=== PATIENT | female | born 1930 | race Caucasian/White ===

== ENCOUNTER 2017-10-29 01:06 | Inpatient (IN) ==
[2017-10-29] MEDS ORDERED: SODIUM CHLORIDE 0.9% 1,000 ML IV PRN (01:39)
[2017-10-29 02:43] LABS: Basophils % 0.1 % (0.0-0.8); Eosinophils % 0.1 % (0.00-10.9); Immature Granulocytes % 0.7 %; Immature Granulocytes Absolute 0.11 #; Lymphocytes # 0.9 10*3/uL (1.4-4.0); Lymphocytes % 5.4 % (21.3-54.2); Mean Corpuscular HGB Conc 29.8 GM/DL (32-36); Mean Corpuscular Hemoglobin 20 PG (27-34); Mean Corpuscular Volume 65.4 FL (87-102); Mean Platelet Volume 10.6 FL (9.6-12.0); Monocytes % 6.4 % (1.7-12.7); NRBC # 0.04 10*3/uL; Neutrophils # 14.3 10*3/uL (1.4-7.4); Neutrophils % 87.3 % (38.7-73.9); Platelet Count 254 T/CUMM (130-400); Red Blood Count 2.72 MC/CUMM (3.8-5.5); Red Cell Distribution Width 17.4 % (9.3-17.3); White Blood Count 16.3 T/CUMM (4-12)
[2017-10-29 02:45] LABS: Hemoglobin 5.3 GM/DL (12.0-16.0)
[2017-10-29 02:46] LABS: Hematocrit 17.8 VOL% (35.7-47.0)
[2017-10-29 03:01] LABS: Albumin 3.4 G/DL (3.4-5.0); Bilirubin,Total 1.6 MG/DL (0.2-1.0); Calcium 8.9 MG/DL (8.5-10.1); Osmolality,Calculated 292.1 MOS/KG (273-304); Potassium 4.9 MMOL/L (3.5-5.1); Total Protein 6.9 G/DL (6.4-8.3)
[2017-10-29] MEDS ORDERED: PROMETHAZINE 25 MG/1 ML VIAL IM PRN (04:59)
[2017-10-29] MEDS ORDERED: ONDANSETRON 4 MG/2 ML VIAL IV PRN (04:59)
[2017-10-29] MEDS ORDERED: MORPHINE 4 MG/1 ML VIAL IV PRN (04:59)
[2017-10-29] MEDS ORDERED: GLUCAGON 1 MG VIAL IM PRN (04:59)
[2017-10-29] MEDS ORDERED: ALBUTEROL 2.5 MG/3 ML NEB RESP TX PRN (04:59)
[2017-10-29] MEDS ORDERED: OCTREOTIDE 500 MCG in SODIUM CHLORIDE 0.9% 100 ML IV SCH (05:15)
[2017-10-29] MEDS ORDERED: PANTOPRAZOLE INJ 80 MG in SODIUM CHLORIDE 0.9% 100 ML IV ONE (05:15)
[2017-10-29] MEDS: SODIUM CHLORIDE 0.9% 1,000 ML IV SCH ×2 (05:22→22:53)
[2017-10-29] MEDS: INSULIN LISPRO 100 UNIT/ML SUBCUT SCH ×3 (05:52→17:40)
[2017-10-29] MEDS: PANTOPRAZOLE INJ 200 MG in SODIUM CHLORIDE 0.9% 250 ML IV SCH (06:37)
[2017-10-29] MEDS: FLUDROCORTISONE 0.1 MG TABLET PO SCH (08:01)
[2017-10-29] MEDS: INSULIN ASPART PROTAMINE/ASPART 70/30 100 UNIT/ML SUBCUT SCH ×2 (08:01→17:39)
[2017-10-29 09:44] LABS: Amorphous Crystals,Urine Occasional /HPF (Few); Apearance,Urine CLEAR (Clear); Bacteria,Urine Occasional /HPF (Few); Bilirubin,Urine Negative (Negative); Blood, Urine Negative (Negative); Glucose,Urine (UA) Negative (Negative); Ketones,Urine Negative (Negative); Mucus,Urine Occasional /LPF (Occasional); Nitrite,Urine Negative (Negative); Protein,Urine Negative; Squamous Epithelial Cell,Urine Occasional /HPF (0-10); Urine Color Yellow (Yellow); Urine Urobilinogen < 2.0 EU/DL (0.2-1.0); WBC,Urine 1 /HPF (0-6)
[2017-10-29] MEDS: FUROSEMIDE 100 MG/10 ML VIAL IV SCH ×2 (12:52→17:54)
[2017-10-29] MEDS: FLUCONAZOLE INJ 100 MG in IV BAG 1 EACH IV SCH (15:40)
[2017-10-29 18:17] LABS: Hematocrit 27.6 VOL% (35.7-47.0); Hemoglobin 9.2 GM/DL (12.0-16.0)
[2017-10-29 23:39] LABS: Hematocrit 29.8 VOL% (35.7-47.0); Hemoglobin 9.7 GM/DL (12.0-16.0)
[2017-10-30] MEDS: INSULIN LISPRO 100 UNIT/ML SUBCUT SCH ×5 (00:40→23:50)
[2017-10-30 04:56] LABS: Basophils % 0.2 % (0.0-0.8); Eosinophils # 0.1 10*3/uL (0.0-0.87); Eosinophils % 0.3 % (0.00-10.9); Hematocrit 31.2 VOL% (35.7-47.0); Hemoglobin 9.8 GM/DL (12.0-16.0); Immature Granulocytes % 0.9 %; Immature Granulocytes Absolute 0.22 #; Lymphocytes % 4.3 % (21.3-54.2); Mean Corpuscular HGB Conc 31.4 GM/DL (32-36); Mean Corpuscular Hemoglobin 24 PG (27-34); Mean Corpuscular Volume 76.8 FL (87-102); Mean Platelet Volume 10.3 FL (9.6-12.0); Monocytes # 1.7 10*3/uL (0.11-0.8); NRBC # 0.14 10*3/uL; Neutrophils # 20.6 10*3/uL (1.4-7.4); Neutrophils % 87.3 % (38.7-73.9); Platelet Count 182 T/CUMM (130-400); Red Blood Count 4.06 MC/CUMM (3.8-5.5); Red Cell Distribution Width 25.2 % (9.3-17.3); White Blood Count 23.5 T/CUMM (4-12)
[2017-10-30 05:14] LABS: Albumin 3.1 G/DL (3.4-5.0); Bilirubin,Total 3.9 MG/DL (0.2-1.0); Osmolality,Calculated 293.1 MOS/KG (273-304); Potassium 3.3 MMOL/L (3.5-5.1); Total Protein 6.5 G/DL (6.4-8.3)
[2017-10-30 05:23] LABS: Band Neutrophils 1 % (0-10); Lymphocytes 2 % (20-55); Nucleated Red Blood Cells 4 (0-5); Segmented Neutrophils 95 % (50-85); Total Cells Counted 100
[2017-10-30 05:24] LABS: Anisocytosis 1+
[2017-10-30 05:25] LABS: Hypochromasia 1+; Ovalocytes 1+; Platelet Estimate Normal; Target Cells Few
[2017-10-30] MEDS: SODIUM CHLOR 0.9% KCL 20 MEQ 20 MEQ/1,000 ML BAG IV SCH ×2 (06:02→23:50)
[2017-10-30] MEDS: POTASSIUM CHLORIDE 20 MEQ TABLET PO PRN ×3 (06:03→12:30)
[2017-10-30] MEDS: INSULIN ASPART PROTAMINE/ASPART 70/30 100 UNIT/ML SUBCUT SCH ×2 (07:26→17:10)
[2017-10-30] MEDS: FLUDROCORTISONE 0.1 MG TABLET PO SCH (10:00)
[2017-10-30] MEDS: PANTOPRAZOLE INJ 200 MG in SODIUM CHLORIDE 0.9% 250 ML IV SCH (10:30)
[2017-10-30] MEDS: FLUCONAZOLE INJ 100 MG in IV BAG 1 EACH IV SCH (15:00)
[2017-10-31] MEDS: INSULIN LISPRO 100 UNIT/ML SUBCUT SCH ×3 (05:10→17:18)
[2017-10-31 05:49] LABS: Basophils % 0.1 % (0.0-0.8); Eosinophils # 0.1 10*3/uL (0.0-0.87); Eosinophils % 0.8 % (0.00-10.9); Hematocrit 29.1 VOL% (35.7-47.0); Immature Granulocytes % 0.7 %; Lymphocytes # 0.9 10*3/uL (1.4-4.0); Lymphocytes % 6.3 % (21.3-54.2); Mean Corpuscular HGB Conc 30.9 GM/DL (32-36); Mean Corpuscular Hemoglobin 24 PG (27-34); Mean Corpuscular Volume 77.8 FL (87-102); Mean Platelet Volume 10.6 FL (9.6-12.0); Monocytes # 1.6 10*3/uL (0.11-0.8); NRBC # 0.05 10*3/uL; Neutrophils # 11.9 10*3/uL (1.4-7.4); Neutrophils % 81.1 % (38.7-73.9); Platelet Count 153 T/CUMM (130-400); Red Blood Count 3.74 MC/CUMM (3.8-5.5); Red Cell Distribution Width 25.9 % (9.3-17.3); White Blood Count 14.6 T/CUMM (4-12)
[2017-10-31 06:11] LABS: Hypochromasia 2+; Microcytosis 1+; Spherocytes Slight; Target Cells Slight
[2017-10-31 06:12] LABS: Acanthocytes Few; Ovalocytes Slight; Platelet Estimate Adequate
[2017-10-31 06:18] LABS: Calcium 8.2 MG/DL (8.5-10.1); Osmolality,Calculated 292.7 MOS/KG (273-304); Potassium 4.2 MMOL/L (3.5-5.1)
[2017-10-31] MEDS: FLUDROCORTISONE 0.1 MG TABLET PO SCH (09:37)
[2017-10-31] MEDS: INSULIN ASPART PROTAMINE/ASPART 70/30 100 UNIT/ML SUBCUT SCH ×2 (09:39→18:22)
[2017-10-31 11:31] LABS: Albumin 2.8 G/DL (3.4-5.0); Bilirubin,Direct 1.48 MG/DL (0.0-0.20); Bilirubin,Total 2.5 MG/DL (0.2-1.0); Total Protein 6.2 G/DL (6.4-8.3)
[2017-10-31] MEDS: PANTOPRAZOLE INJ 200 MG in SODIUM CHLORIDE 0.9% 250 ML IV SCH (12:24)
[2017-10-31] MEDS: FLUCONAZOLE INJ 100 MG in IV BAG 1 EACH IV SCH (14:15)
[2017-10-31] MEDS: SODIUM CHLOR 0.9% KCL 20 MEQ 20 MEQ/1,000 ML BAG IV SCH (17:14)
[2017-10-31] MEDS: PANTOPRAZOLE 40 MG TABLET PO SCH (21:13)
[2017-11-01 05:32] LABS: White Blood Count 14.2 T/CUMM (4-12)
[2017-11-01 05:33] LABS: Basophils % 0.2 % (0.0-0.8); Eosinophils # 0.2 10*3/uL (0.0-0.87); Eosinophils % 1.6 % (0.00-10.9); Hematocrit 28.1 VOL% (35.7-47.0); Hemoglobin 8.7 GM/DL (12.0-16.0); Immature Granulocytes % 0.5 %; Immature Granulocytes Absolute 0.07 #; Lymphocytes % 7.3 % (21.3-54.2); Mean Corpuscular Hemoglobin 24 PG (27-34); Mean Corpuscular Volume 78.5 FL (87-102); Monocytes # 1.5 10*3/uL (0.11-0.8); Monocytes % 10.7 % (1.7-12.7); NRBC # 0.02 10*3/uL; Neutrophils # 11.3 10*3/uL (1.4-7.4); Neutrophils % 79.7 % (38.7-73.9); Platelet Count 123 T/CUMM (130-400); Red Blood Count 3.58 MC/CUMM (3.8-5.5); Red Cell Distribution Width 26.9 % (9.3-17.3)
[2017-11-01 05:48] LABS: Albumin 2.7 G/DL (3.4-5.0); Calcium 8.5 MG/DL (8.5-10.1); Total Protein 6.1 G/DL (6.4-8.3)
[2017-11-01 05:49] LABS: Osmolality,Calculated 293.4 MOS/KG (273-304)
[2017-11-01 06:20] LABS: Burr Cells 1+; Sickle Cells Few
[2017-11-01 06:21] LABS: Elliptocytes Few; Ovalocytes Few
[2017-11-01 06:22] LABS: Acanthocytes Few; Anisocytosis 1+; Microcytosis 2+
[2017-11-01 06:23] LABS: Polychromasia 1+
[2017-11-01] MEDS: INSULIN LISPRO 100 UNIT/ML SUBCUT SCH ×5 (06:39→23:12)
[2017-11-01] MEDS ORDERED: PANTOPRAZOLE 40 MG VIAL IV SCH (09:00)
[2017-11-01] MEDS: FLUDROCORTISONE 0.1 MG TABLET PO SCH (09:10)
[2017-11-01] MEDS: SODIUM CHLOR 0.9% KCL 20 MEQ 20 MEQ/1,000 ML BAG IV SCH (09:11)
[2017-11-01] MEDS: INSULIN ASPART PROTAMINE/ASPART 70/30 100 UNIT/ML SUBCUT SCH ×2 (09:11→17:09)
[2017-11-01] MEDS: PANTOPRAZOLE 40 MG TABLET PO SCH ×2 (09:11→21:39)
[2017-11-01] MEDS: POLYETHYLENE GLYCOL POWDER 17 GM PACK PO SCH (09:46)
[2017-11-01] MEDS: FUROSEMIDE 40 MG/4 ML VIAL IV SCH (14:24)
[2017-11-01] MEDS: FLUCONAZOLE INJ 100 MG in IV BAG 1 EACH IV SCH (14:26)
[2017-11-01 14:52] LABS: Troponin I 0.027 NG/ML (0.00-0.045)
[2017-11-01 14:59] LABS: Free T4 (Free Thyroxine) 0.93 NG/DL (0.76-1.46); Thyroid Stimulating Hormone 0.485 uIU/ml (0.358-3.74)
[2017-11-02 00:19] LABS: % Iron Saturation 7.5 % (18-50); Ferritin 54.2 ng/ml (8-252)
[2017-11-02] MEDS: DEXTROSE 50% 25 GM/50 ML VIAL IV PRN ×2 (03:20→06:33)
[2017-11-02 03:32] LABS: Basophils % 0.1 % (0.0-0.8); Eosinophils # 0.3 10*3/uL (0.0-0.87); Eosinophils % 2.1 % (0.00-10.9); Hemoglobin 8.6 GM/DL (12.0-16.0); Immature Granulocytes % 0.6 %; Immature Granulocytes Absolute 0.08 #; Lymphocytes # 1.3 10*3/uL (1.4-4.0); Lymphocytes % 8.9 % (21.3-54.2); Mean Corpuscular HGB Conc 31.9 GM/DL (32-36); Mean Corpuscular Hemoglobin 25 PG (27-34); Mean Corpuscular Volume 77.6 FL (87-102); Monocytes # 1.6 10*3/uL (0.11-0.8); Monocytes % 11.5 % (1.7-12.7); Neutrophils # 10.9 10*3/uL (1.4-7.4); Neutrophils % 76.8 % (38.7-73.9); Platelet Count 137 T/CUMM (130-400); Red Blood Count 3.48 MC/CUMM (3.8-5.5); Red Cell Distribution Width 27.6 % (9.3-17.3); White Blood Count 14.1 T/CUMM (4-12)
[2017-11-02 03:54] LABS: Cholesterol < 50 MG/DL (50-200); HDL Cholesterol 34 MG/DL (40-60); Risk Ratio 1.47; Triglycerides 47 MG/DL (2-150); VLDL CHOLESTEROL 9.4 MG/DL
[2017-11-02 03:55] LABS: Calcium 8.5 MG/DL (8.5-10.1); Osmolality,Calculated 284.5 MOS/KG (273-304); Potassium 3.7 MMOL/L (3.5-5.1)
[2017-11-02 04:36] LABS: Band Neutrophils 3 % (0-10); Eosinophils 4 % (0-10); Lymphocytes 14 % (20-55); Segmented Neutrophils 73 % (50-85); Total Cells Counted 100
[2017-11-02 04:39] LABS: Acanthocytes Few; Ovalocytes Few; Platelet Estimate Decreased; Schistocytes Few; Sickle Cells Few
[2017-11-02 04:40] LABS: Anisocytosis Slight; Microcytosis 2+; Polychromasia Few
[2017-11-02] MEDS: INSULIN LISPRO 100 UNIT/ML SUBCUT SCH ×3 (05:53→16:30)
[2017-11-02] MEDS: PANTOPRAZOLE 40 MG TABLET PO SCH ×2 (09:01→21:39)
[2017-11-02] MEDS: POLYETHYLENE GLYCOL POWDER 17 GM PACK PO SCH (09:01)
[2017-11-02] MEDS: FLUDROCORTISONE 0.1 MG TABLET PO SCH (09:01)
[2017-11-02] MEDS: FUROSEMIDE 40 MG/4 ML VIAL IV SCH (09:02)
[2017-11-02] MEDS: INSULIN ASPART PROTAMINE/ASPART 70/30 100 UNIT/ML SUBCUT SCH ×2 (09:02→16:30)
[2017-11-02] MEDS ORDERED: LEVOFLOXACIN INJ 500 MG in PREMIX 1 EACH IV SCH (09:30)
[2017-11-02] MEDS ORDERED: BISACODYL 10 MG SUPP RECTAL ONE (11:18)
[2017-11-02] MEDS ORDERED: LACTULOSE 20 GM/30 ML UDCUP PO PRN (11:19)
[2017-11-02] MEDS: FLUCONAZOLE INJ 100 MG in IV BAG 1 EACH IV SCH (15:42)
[2017-11-03] MEDS: INSULIN LISPRO 100 UNIT/ML SUBCUT SCH ×4 (01:03→17:26)
[2017-11-03 04:16] LABS: Basophils % 0.2 % (0.0-0.8); Eosinophils # 0.3 10*3/uL (0.0-0.87); Eosinophils % 2.6 % (0.00-10.9); Hematocrit 28.3 VOL% (35.7-47.0); Hemoglobin 8.3 GM/DL (12.0-16.0); Immature Granulocytes % 0.5 %; Immature Granulocytes Absolute 0.06 #; Lymphocytes % 7.8 % (21.3-54.2); Mean Corpuscular HGB Conc 29.3 GM/DL (32-36); Mean Corpuscular Hemoglobin 24 PG (27-34); Mean Corpuscular Volume 80.4 FL (87-102); Mean Platelet Volume 10.8 FL (9.6-12.0); Monocytes # 1.4 10*3/uL (0.11-0.8); Monocytes % 11.5 % (1.7-12.7); Neutrophils # 9.5 10*3/uL (1.4-7.4); Neutrophils % 77.4 % (38.7-73.9); Red Blood Count 3.52 MC/CUMM (3.8-5.5); Red Cell Distribution Width 28.3 % (9.3-17.3); White Blood Count 12.3 T/CUMM (4-12)
[2017-11-03 04:21] LABS: Platelet Count 91 T/CUMM (130-400)
[2017-11-03 04:51] LABS: Calcium 8.3 MG/DL (8.5-10.1); Osmolality,Calculated 288.4 MOS/KG (273-304); Potassium 3.6 MMOL/L (3.5-5.1)
[2017-11-03 04:54] LABS: Elliptocytes Few; Hypochromasia 1+; Platelet Estimate Decreased
[2017-11-03 04:56] LABS: Microcytosis Slight; Sickle Cells Slight
[2017-11-03 05:01] LABS: Albumin 2.5 G/DL (3.4-5.0); Calcium 8.2 MG/DL (8.5-10.1); Osmolality,Calculated 286.5 MOS/KG (273-304); Potassium 3.6 MMOL/L (3.5-5.1)
[2017-11-03] MEDS ORDERED: LEVOFLOXACIN INJ 250 MG in PREMIX 1 EACH IV SCH (09:00)
[2017-11-03] MEDS ORDERED: BISACODYL 10 MG SUPP RECTAL ONE (09:24)
[2017-11-03] MEDS: POLYETHYLENE GLYCOL POWDER 17 GM PACK PO SCH (10:05)
[2017-11-03] MEDS: PANTOPRAZOLE 40 MG TABLET PO SCH ×2 (10:05→21:22)
[2017-11-03] MEDS: FLUDROCORTISONE 0.1 MG TABLET PO SCH (10:05)
[2017-11-03] MEDS: FUROSEMIDE 40 MG/4 ML VIAL IV SCH (10:06)
[2017-11-03] MEDS: INSULIN ASPART PROTAMINE/ASPART 70/30 100 UNIT/ML SUBCUT SCH ×2 (10:06→16:49)
[2017-11-03] MEDS ORDERED: FUROSEMIDE 40 MG TABLET PO SCH (10:30)
[2017-11-03] MEDS: SPIRONOLACTONE 25 MG TABLET PO SCH (10:50)
[2017-11-03] MEDS: ATORVASTATIN 20 MG TABLET PO SCH (10:50)
[2017-11-03] MEDS: FUROSEMIDE 80 MG TABLET PO SCH (10:50)
[2017-11-03] MEDS ORDERED: LEVOFLOXACIN 250 MG TABLET PO SCH (12:30)
[2017-11-03] MEDS: POTASSIUM CHLORIDE 20 MEQ TABLET PO SCH ×2 (17:10→21:22)
[2017-11-03] MEDS: CARVEDILOL 3.125 MG TABLET PO SCH (21:22)
[2017-11-04] MEDS: INSULIN LISPRO 100 UNIT/ML SUBCUT SCH ×4 (01:14→18:22)
[2017-11-04 04:41] LABS: Basophils % 0.3 % (0.0-0.8); Eosinophils # 0.2 10*3/uL (0.0-0.87); Eosinophils % 2.2 % (0.00-10.9); Hemoglobin 7.8 GM/DL (12.0-16.0); Immature Granulocytes % 0.6 %; Immature Granulocytes Absolute 0.06 #; Lymphocytes % 8.8 % (21.3-54.2); Mean Corpuscular Hemoglobin 24 PG (27-34); Mean Corpuscular Volume 80.2 FL (87-102); Monocytes # 1.5 10*3/uL (0.11-0.8); Monocytes % 13.8 % (1.7-12.7); Neutrophils # 8.1 10*3/uL (1.4-7.4); Neutrophils % 74.3 % (38.7-73.9); Red Blood Count 3.24 MC/CUMM (3.8-5.5); Red Cell Distribution Width 28.8 % (9.3-17.3); White Blood Count 10.8 T/CUMM (4-12)
[2017-11-04 04:48] LABS: Calcium 8.4 MG/DL (8.5-10.1); Osmolality,Calculated 290.4 MOS/KG (273-304); Potassium 3.9 MMOL/L (3.5-5.1)
[2017-11-04 04:51] LABS: Platelet Count 89 T/CUMM (130-400)
[2017-11-04] MEDS: FLUDROCORTISONE 0.1 MG TABLET PO SCH (09:14)
[2017-11-04] MEDS: INSULIN ASPART PROTAMINE/ASPART 70/30 100 UNIT/ML SUBCUT SCH ×2 (09:14→18:21)
[2017-11-04] MEDS: FUROSEMIDE 80 MG TABLET PO SCH (09:14)
[2017-11-04] MEDS: PANTOPRAZOLE 40 MG TABLET PO SCH ×2 (09:14→22:25)
[2017-11-04] MEDS: CARVEDILOL 3.125 MG TABLET PO SCH ×2 (09:14→22:25)
[2017-11-04] MEDS: POTASSIUM CHLORIDE 20 MEQ TABLET PO SCH ×3 (09:14→22:25)
[2017-11-04] MEDS: SPIRONOLACTONE 25 MG TABLET PO SCH (09:14)
[2017-11-04] MEDS: DOXYCYCLINE HYCLATE 100 MG CAPSULE PO SCH ×2 (09:14→22:24)
[2017-11-04] MEDS: POLYETHYLENE GLYCOL POWDER 17 GM PACK PO SCH (09:15)
[2017-11-04 16:57] LABS: Hematocrit 26.7 VOL% (35.7-47.0); Hemoglobin 8.1 GM/DL (12.0-16.0)
[2017-11-05] MEDS: INSULIN LISPRO 100 UNIT/ML SUBCUT SCH ×4 (01:39→18:56)
[2017-11-05 06:36] LABS: Basophils % 0.3 % (0.0-0.8); Eosinophils # 0.2 10*3/uL (0.0-0.87); Eosinophils % 2.1 % (0.00-10.9); Hematocrit 25.9 VOL% (35.7-47.0); Hemoglobin 8.1 GM/DL (12.0-16.0); Immature Granulocytes % 0.6 %; Immature Granulocytes Absolute 0.06 #; Lymphocytes % 9.3 % (21.3-54.2); Mean Corpuscular HGB Conc 31.3 GM/DL (32-36); Mean Corpuscular Hemoglobin 25 PG (27-34); Monocytes # 1.3 10*3/uL (0.11-0.8); Monocytes % 12.2 % (1.7-12.7); Neutrophils # 8.2 10*3/uL (1.4-7.4); Neutrophils % 75.5 % (38.7-73.9); Red Blood Count 3.28 MC/CUMM (3.8-5.5); White Blood Count 10.9 T/CUMM (4-12)
[2017-11-05 06:40] LABS: Platelet Count 85 T/CUMM (130-400)
[2017-11-05 06:54] LABS: Calcium 8.9 MG/DL (8.5-10.1); Osmolality,Calculated 286.5 MOS/KG (273-304); Potassium 4.4 MMOL/L (3.5-5.1)
[2017-11-05] MEDS: INSULIN ASPART PROTAMINE/ASPART 70/30 100 UNIT/ML SUBCUT SCH ×2 (08:34→17:41)
[2017-11-05] MEDS: POTASSIUM CHLORIDE 20 MEQ TABLET PO SCH ×3 (08:35→23:23)
[2017-11-05] MEDS: SPIRONOLACTONE 25 MG TABLET PO SCH (08:35)
[2017-11-05] MEDS: MAGNESIUM CHLORIDE 64 MG TABLET PO SCH ×2 (08:35→23:23)
[2017-11-05] MEDS: FLUDROCORTISONE 0.1 MG TABLET PO SCH (08:35)
[2017-11-05] MEDS: PANTOPRAZOLE 40 MG TABLET PO SCH ×2 (08:35→23:23)
[2017-11-05] MEDS: CARVEDILOL 3.125 MG TABLET PO SCH ×2 (08:35→23:24)
[2017-11-05] MEDS: FUROSEMIDE 80 MG TABLET PO SCH (08:35)
[2017-11-05] MEDS: POLYETHYLENE GLYCOL POWDER 17 GM PACK PO SCH (08:41)
[2017-11-05 13:24] LABS: Anisocytosis 2+; Elliptocytes 1+; Hypochromasia 2+; Poikilocytosis 2+
[2017-11-05 13:25] LABS: Microcytosis 2+; Ovalocytes Slight; Polychromasia Slight; Schistocytes Slight
[2017-11-05 13:26] LABS: Platelet Estimate Decreased
[2017-11-06] MEDS: DEXTROSE 50% 25 GM/50 ML VIAL IV PRN (00:08)
[2017-11-06] MEDS: INSULIN LISPRO 100 UNIT/ML SUBCUT SCH ×4 (00:27→18:24)
[2017-11-06 05:47] LABS: Basophils % 0.2 % (0.0-0.8); Eosinophils # 0.2 10*3/uL (0.0-0.87); Eosinophils % 2.3 % (0.00-10.9); Hematocrit 26.1 VOL% (35.7-47.0); Hemoglobin 8.1 GM/DL (12.0-16.0); Immature Granulocytes % 0.4 %; Immature Granulocytes Absolute 0.04 #; Lymphocytes # 0.9 10*3/uL (1.4-4.0); Lymphocytes % 9.1 % (21.3-54.2); Mean Corpuscular Hemoglobin 25 PG (27-34); Mean Corpuscular Volume 79.1 FL (87-102); Monocytes # 1.1 10*3/uL (0.11-0.8); Monocytes % 10.9 % (1.7-12.7); Neutrophils # 7.8 10*3/uL (1.4-7.4); Neutrophils % 77.1 % (38.7-73.9); Platelet Count 89 T/CUMM (130-400)
[2017-11-06 06:04] LABS: Elliptocytes Few; Hypochromasia 1+
[2017-11-06 06:05] LABS: Microcytosis 1+; Platelet Estimate Decreased
[2017-11-06 06:08] LABS: Calcium 8.7 MG/DL (8.5-10.1); Osmolality,Calculated 290.3 MOS/KG (273-304); Potassium 4.3 MMOL/L (3.5-5.1)
[2017-11-06] MEDS: INSULIN ASPART PROTAMINE/ASPART 70/30 100 UNIT/ML SUBCUT SCH ×2 (07:54→18:23)
[2017-11-06] MEDS: POLYETHYLENE GLYCOL POWDER 17 GM PACK PO SCH (08:21)
[2017-11-06] MEDS: FUROSEMIDE 80 MG TABLET PO SCH (08:22)
[2017-11-06] MEDS: FLUDROCORTISONE 0.1 MG TABLET PO SCH (08:22)
[2017-11-06] MEDS: CARVEDILOL 3.125 MG TABLET PO SCH ×2 (08:22→21:49)
[2017-11-06] MEDS: PANTOPRAZOLE 40 MG TABLET PO SCH ×2 (08:22→21:50)
[2017-11-06] MEDS: POTASSIUM CHLORIDE 20 MEQ TABLET PO SCH ×3 (08:22→21:50)
[2017-11-06] MEDS: SPIRONOLACTONE 25 MG TABLET PO SCH (08:22)
[2017-11-06] MEDS: MAGNESIUM CHLORIDE 64 MG TABLET PO SCH ×2 (08:22→21:50)
[2017-11-06] MEDS: ATORVASTATIN 20 MG TABLET PO SCH (09:34)
[2017-11-07] MEDS: DEXTROSE 50% 25 GM/50 ML VIAL IV PRN (00:04)
[2017-11-07] MEDS: INSULIN LISPRO 100 UNIT/ML SUBCUT SCH ×2 (00:14→06:31)
[2017-11-07 04:24] LABS: Basophils % 0.3 % (0.0-0.8); Eosinophils # 0.2 10*3/uL (0.0-0.87); Eosinophils % 2.2 % (0.00-10.9); Hematocrit 26.4 VOL% (35.7-47.0); Hemoglobin 7.8 GM/DL (12.0-16.0); Immature Granulocytes % 0.6 %; Immature Granulocytes Absolute 0.06 #; Lymphocytes % 9.3 % (21.3-54.2); Mean Corpuscular HGB Conc 29.5 GM/DL (32-36); Mean Corpuscular Hemoglobin 24 PG (27-34); Mean Corpuscular Volume 82.2 FL (87-102); Monocytes # 1.2 10*3/uL (0.11-0.8); Monocytes % 11.9 % (1.7-12.7); Neutrophils # 7.8 10*3/uL (1.4-7.4); Neutrophils % 75.7 % (38.7-73.9); Red Blood Count 3.21 MC/CUMM (3.8-5.5); White Blood Count 10.3 T/CUMM (4-12)
[2017-11-07 04:44] LABS: Platelet Count 97 T/CUMM (130-400)
[2017-11-07 04:54] LABS: Elliptocytes Few; Hypochromasia 1+; Platelet Estimate Decreased
[2017-11-07 04:55] LABS: Microcytosis 1+
[2017-11-07 04:56] LABS: Osmolality,Calculated 287.4 MOS/KG (273-304); Potassium 4.6 MMOL/L (3.5-5.1)
[2017-11-07] MEDS: INSULIN ASPART PROTAMINE/ASPART 70/30 100 UNIT/ML SUBCUT SCH (07:15)
[2017-11-07] MEDS: POTASSIUM CHLORIDE 20 MEQ TABLET PO SCH ×2 (09:29→14:41)
[2017-11-07] MEDS: POLYETHYLENE GLYCOL POWDER 17 GM PACK PO SCH (09:29)
[2017-11-07] MEDS: FUROSEMIDE 80 MG TABLET PO SCH (09:29)
[2017-11-07] MEDS: SPIRONOLACTONE 25 MG TABLET PO SCH (09:29)
[2017-11-07] MEDS: CARVEDILOL 3.125 MG TABLET PO SCH (09:29)
[2017-11-07] MEDS: FLUDROCORTISONE 0.1 MG TABLET PO SCH (09:29)
[2017-11-07] MEDS: PANTOPRAZOLE 40 MG TABLET PO SCH (09:30)
[2017-11-07] MEDS: MAGNESIUM CHLORIDE 64 MG TABLET PO SCH (09:30)
[2017-11-07] MEDS ORDERED: ALBUTEROL 2.5 MG/3 ML NEB RESP TX SCH (13:00)
[2017-11-07 15:10] VITALS: BP 134/71
== END 2017-11-07 15:46 | disposition home or self-care (01) | DRG 438 ==
LOC: EDUNIT# → EDBD → N.ED 01:06 → N.EDINP 04:20 → SUATTDRO 04:20 → N.ICU 04:56 → N.TELEN 10-31 20:24 → N.2E 11-04 11:12
PROVIDERS: ADMIT Internal Medicine; ATTEND Internal Medicine